=== PATIENT | female | born 1960 | race Caucasian/White ===

== ENCOUNTER 2017-06-27 15:23 | Emergency (ER) | payer OTHER ==
[2017-06-27 15:44] VITALS: BP 132/93
--- NOTE | 2017-06-27 16:24 | Emergency Department Report ---
Blank Doc - Documentation Documentation: patient c/o chest pain, sob, that started this morning, 8, took aspirin, and pain went down to 2/10. had diaphoresis, but no n/v. patient states she has had chest pain in the past and had seen [facility] last year, but doesn't remember what they told her.
[2017-06-27 17:28] LABS: Basophils % (Auto) 0.8 % (0.0-1.8); Eosinophils # (Auto) 0.1 K/mm3 (0.0-0.4); Eosinophils % (Auto) 1.6 % (0.0-4.3); Hematocrit 43.6 % (30.3-42.9); Hemoglobin 14.5 gm/dl (10.1-14.3); Lymphocytes % (Auto) 34.6 % (13.4-35.0); Mean Corpuscular HGB Conc 33 % (30-34); Mean Corpuscular Hemoglobin 30 pg (28-32); Mean Corpuscular Volume 89 fl (79-97); Monocytes # (Auto) 0.2 K/mm3 (0.0-0.8); Monocytes % (Auto) 3.9 % (0.0-7.3); Platelet Count 211 K/mm3 (140-440); Red Cell Distribution Width 13.5 % (13.2-15.2)
[2017-06-27 17:32] LABS: Alanine Aminotransferase 25 units/L (7-56); Albumin 4.4 g/dL (3.9-5); BUN/Creatinine Ratio 20; Blood Urea Nitrogen 10 mg/dL (7-17); Hemolysis Index 3; Lipase 35 units/L (13-60)
--- NOTE | 2017-06-27 21:06 | XRay Report ---
FINAL REPORT EXAM: XR CHEST 1V AP HISTORY: Chest Pain TECHNIQUE: upright single view chest PRIORS: None. FINDINGS: Cardiac and mediastinal contours are unremarkable. No focal pulmonary infiltrate is identified. No pleural fluid collection seen. Pulmonary vasculature is unremarkable. IMPRESSION: Negative single-view chest
== END 2017-06-28 00:35 | disposition left against medical advice (07) ==
LOC: ED 15:23
DX: R07.9 Chest pain, unspecified (principal); Z53.21 Procedure and treatment not carried out due to patient leaving prior to being seen by health care provider
CPT/HCPCS: 36415; 71045; 80053; 83690; 84484; 85025; 85730; 93005; 93010

== ENCOUNTER 2019-01-12 18:43 | Emergency (ER) | payer SELFPAY ==
[2019-01-12] MEDS ORDERED: TETANUS,DIPH,PERTUSS(ACELL) VACCINE 0.5 ML SYRINGE IM ONE (21:02)
--- NOTE | 2019-01-12 21:07 | Emergency Department Report ---
ED Laceration HPI - HPI Chief Complaint: Wound/Laceration Stated Complaint: CUT HAND Time Seen by Provider: 01/12/19 21:01 Occurred When: Today Location: Upper Extremity Severity: mild Tetanus Status: Up to Date Laceration Symptoms: Yes Pain, No Foreign Body Sensation, No Numbness, No Weakness Other History: 58-year-old female was assisting her cutting an object when he was likely a pocket knife sustained a laceration between this first and second phalangeal and the right hand resulting in bleeding. She did place some sugar on the wound and irrigated presents emergency department for wound clean and further evaluation ED Review of Systems ROS: Stated complaint: CUT HAND Other details as noted in HPI Comment: All other systems reviewed and negative ED Past Medical Hx - Past Medical History Previous Medical History?: No Additional medical history: chest pain - Surgical History Past Surgical History?: No - Social History Smoking Status: Never Smoker Substance Use Type: None Laceration Physical Exam - Exam General: Vital signs noted. No distress. Alert and acting appropriately. Wound Length (cm): 1 Laceration Location: Upper Extremity Full Body Front + Back: 1 - Superficial linear laceration between the first and second phalanges Laceration Exam: Yes Normal Distal CMS, No Foreign Body, No Exposed Tendon, Vessel, or Nerve, No Tendon Injury ED Course Vital Signs 01/12/19 19:01 Temperature 98.1 F Pulse Rate 76 Respiratory 18 Rate Blood Pressure 133/84 O2 Sat by Pulse 100 Oximetry - Procedure Description Procedures done: Laceration from the first and second phalanges superficial wound was cleaned and Dermabond was placed ED Medical Decision Making - Medical Decision Making 8-year-old female with superficial laceration to the right hand R she was cleaned with antimicrobial solution tetanus shot was provided and Dermabond was placed. Range of motion of the hand with normal strength pulses 2+ capillary refills are brisk Critical care attestation.: If time is entered above; I have spent that time in minutes in the direct care of this critically ill patient, excluding procedure time. ED Disposition Clinical Impression: Tetanus toxoid inoculation, Laceration Disposition: - TO HOME OR SELFCARE Is pt being admited?: No Does the pt Need Aspirin: No Condition: Stable Instructions: Skin Adhesive Care (ED) Referrals: ZAHIDA DELGADO MD [Primary Care Provider] - 3-5 Days [facility] [Provider Group] - 3-5 Days
[2019-01-12 21:30] VITALS: BP 139/70
== END 2019-01-12 21:34 | disposition home or self-care (01) ==
LOC: ED 18:43
DX: S61.411A Laceration without foreign body of right hand, initial encounter (principal); W26.0XXA Contact with knife, initial encounter; Y93.89 Activity, other specified; Y92.89 Other specified places as the place of occurrence of the external cause; Y99.8 Other external cause status
CPT/HCPCS: 90471; 90715; 99282